=== PATIENT | female | born 2000 | race Caucasian/White ===

== ENCOUNTER 2019-03-20 20:26 | Inpatient (IN) | payer BC ==
[2019-03-20] MEDS ORDERED: Sodium Chloride 0.9% 10 ML Syringe FLUSH PRN (20:46)
[2019-03-20] MEDS ORDERED: Ampicillin 2 GM in Sodium Chloride 0.9% 100 ML IV ONE (20:46)
[2019-03-20] MEDS ORDERED: Nalbuphine 10 MG/1 ML Vial IVPUSH PRN (20:46)
[2019-03-20] MEDS ORDERED: Ondansetron 4 MG/2 ML SDV IVPUSH PRN (20:46)
[2019-03-20] MEDS ORDERED: Oxytocin/Lactated Ringers 10 UNIT/1,000 ML BAG IV SCH ×2 (21:00)
[2019-03-20] MEDS ORDERED: Lactated Ringers 1,000 ML IV SCH (21:00)
[2019-03-20] MEDS ORDERED: Ampicillin 2 GM AdvVial IV ONE (21:02)
[2019-03-20] MEDS ORDERED: Lactated Ringers 1,000 ML ONE (21:02)
--- NOTE | 2019-03-20 21:19 | PCM.LDHP ---
L&D History of Present Illness - General Date of Service: 03/20/19 Admit Problem/Dx: Patient Status Order with Admit Dx/Problem 03/20/19 20:33 Patient Status [ADT] Routine 03/20/19 20:46 Patient Status [ADT] Routine Admission Diagnosis/Problem Admission Diagnosis/Problem 03/20/19 21:10 Erin is a 18-year-old 1 para 0 white female who is at 40-3/7 weeks gestational age with an TERESA of 03/09/2019 who is admitted to labor and delivery in active labor with spontaneous rupture membranes with resultant clear amniotic fluid. Source of Information: Patient History Limitations: Reports: No Limitations - History of Present Illness Introduction:: Erin is a 18-year-old 1 para 0 white female who is at 40-3/7 weeks gestational age with an TERESA of 03/09/2019 who is admitted to labor and delivery in active labor with spontaneous rupture membranes with resultant clear amniotic fluid.Patient seen earlier in clinic today on the a.m. of 03/20/2019 at which time she was noted to be dariela. She is evaluated with a reactive nonstress test. Cervix changed somewhat to 2+ centimeters. She now is dariela every 3 minutes. She is somewhat uncomfortable with contractions mild to moderate in intensity. Nursing evaluation of cervix shows 3 cm dilation , 90% effacement, vertex presentation. heart tones are reassuring. NEUROLOGY TECHNOLOGIST history: Patient is 1 para 0. TERESA is 03/17/2019 as based upon a certain last menstrual start 06/10/2018 and supported by 4 ultrasounds done during the course of her . Patient had menarche at age 12. Cycles every 28-30 days. Monthly cycles are noted. Patient is not using any control time conception. Her last menstrual period was definite. course: Patient was first seen for this on 09/02/2018 at 12 weeks gestational age. Patient had regular visits. She had a weight gain from 124.2 pounds up to 153.6 pounds for a 29.4 pound weight increase. Fundal height growth was appropriate. Vital signs were stable throughout the course. Patient is group B strep positive. She had an induction scheduled for 2018. She did have bacterial vaginosis during the course of Prevacid which was treated with antibiotics. She declined flu shot. She declined genetic testing. She declined Tdap. Her [place] depression screening score 10/31/2018 was 01 scale 30. She had a normal one-hour GTT. She is planning on breast- feeding. She hasn't a velamentous insertion of the umbilical cord. Laboratory testing in shows blood to be HIV-positive. Antibody screen is negative. First trimester hemoglobin was 14.3 g/dL. Platelets were 267,000. She is rubella immune. RPR is nonreactive. Urine cultures negative. Hepatitis B surface antigen and HIV assays were both negative.. GC and Chlamydia were also both negative. Her second trimester labs showed a hemoglobin 12.4 g/dL. Platelets were 285,000. One-hour GTT was normal at 63. Group B strep screen was positive on 02/20/2019 and her RPR second trimester was nonreactive. Numeric Allergies: none Medications: vitamins daily Past medical history: Unremarkable. Past surgical history: Unremarkable. Family history:. Mother had 2 miscarriages. She is however alive and well. Father is alive and well. Patient has 2 brothers 1 of whom has 2 moles in his heart. Had surgery for this. Both brothers are alive and well. Patient has 5 sisters who are alive and well. Internal grandmother is alive and well as is her maternal grandfather. Paternal grandmother is alive but has type 2 diabetes. Paternal grandfather is alive and well. There is no known family history of cancer, bleeding disorders, blood clotting disorders, anesthesia problems or related problems. Social history: Patient is is Jo[employer] F. She is not employed at the present time. She has some college education. She speaks German. She lives in [place] with her . She does not use any significant loss of alcohol, drugs or tobacco. Review of systems: In general patient has no complaints. She is however ruptured with clear amniotic fluid resulting. She is dariela. But these are mild at the present time. Skin: Negative Lungs: No infectious symptoms or shortness of breath Cardiovascular: No chest pain or exercise intolerance Breasts: Changes associated with . Patient plans to breast-feed GI: Negative : Changes associated with . Musculoskeletal: Negative Neurological: Negative In general the patient is well-developed, well-nourished, pleasant female of stated age in no acute distress. Skin is warm dry without lesions. HEENT, neck and back within normal limits. Lungs are clear with good breath sounds in all lung brown. Cardiovascular exam shows regular and rhythm without murmurs. Breasts exam deferred at this time. It was done at first visit promptly normal. Abdomen is gravid with last fundal height of 38 cm earlier on the day of admission. She. Genital exam per digital evaluation shows cervix to be 3 cm, S1 station, anterior, soft, 90% effaced by nursing evaluation. Extremities and neurological exam are grossly within normal limits. - Related Data Allergies/Adverse Reactions: Allergies Allergy/AdvReac Type Severity Reaction Status Date / Time No Known Allergies Allergy Verified 03/20/19 20:33 H&P Review of Systems - Review of Systems: Review Of Systems: See Below L&D Exam - Exam Exam: See Below - Vital Signs Weight: 70.307 kg Problem List Initiated/Reviewed/Updated: Yes Orders Last 24hrs: Active Orders 24 hr Category Date Time Status Patient Status [ADT] Routine ADT 03/20/19 20:46 Active Activity as Tolerated [RC] PFP Care 03/20/19 20:46 Active Communication Order [RC] ASDIRECTED Care 03/20/19 20:46 Active Heart Tones [RC] ASDIRECTED Care 03/20/19 20:46 Active Non Stress Test [RC] PER UNIT ROUTINE Care 03/20/19 20:33 Active Notify Provider [RC] PFP Care 03/20/19 20:46 Active Notify Provider [RC] PRN Care 03/20/19 20:46 Active Peripheral IV Care [RC] . DIRECTED Care 03/20/19 20:46 Active Pump Management, Intrathecal [RC] ASDIRECTED Care 03/20/19 20:55 Active Vital Signs [RC] PER UNIT ROUTINE Care 03/20/19 20:33 Active Vital Signs [RC] PER UNIT ROUTINE Care 03/20/19 20:46 Active BLOOD BANK HOLD SPECIMEN [BBK] Stat Lab 03/20/19 20:46 Ordered CBC WITH AUTO DIFF [HEME] Stat Lab 03/20/19 20:46 Ordered RAPID PLASMA REAGIN,RPR [CHEM] Routine Lab 03/20/19 20:46 Ordered Ampicillin 1 gm Med 03/20/19 21:00 Pending Sodium Chloride 0.9% [Normal Saline] 100 ml IV Q4H Ampicillin 2 gm Med 03/20/19 20:46 Active Sodium Chloride 0.9% [Normal Saline] 100 ml IV ONETIME Lactated Ringers [Ringers, Lactated] 1,000 ml Med 03/20/19 21:00 Active IV ASDIRECTED Nalbuphine [Nubain] Med 03/20/19 20:46 Active 10 mg IVPUSH Q2H PRN Ondansetron [Zofran] Med 03/20/19 20:46 Active 4 mg IVPUSH Q4H PRN Oxytocin/Lactated Ringers [Pitocin in LR 10 Units/1,000 Med 03/20/19 21:00 Active ML] 10 unit in 1,000 ml IV .CONTINUOUS Oxytocin/Lactated Ringers [Pitocin in LR 10 Units/1,000 Med 03/20/19 21:00 Active ML] 10 unit in 1,000 ml IV TITRATE Sodium Chloride 0.9% [Saline Flush] Med 03/20/19 20:46 Active 10 ml FLUSH ASDIRECTED PRN Electronic Heart Tones Ext w TOCO [WOMSER] Oth 03/20/19 20:46 Ordered Routine Electronic Heart Tones Internal [WOMSER] Per Unit Ot 03/20/19 20:46 Ordered Routine Peripheral IV Insertion Adult [OM.PC] Routine Oth 03/20/19 20:46 Ordered Resuscitation Status Routine Resus Stat 03/20/19 20:33 Ordered Medication Orders Ampicillin Sodium 2 gm/ Sodium (Chloride) 100 mls @ 200 mls/hr IV ONETIME ONE Stop: 03/20/19 21:15 Lactated Ringer's (Ringers, Lactated) 1,000 mls @ 100 mls/hr IV ASDIRECTED MARYANA Ampicillin Sodium 1 gm/ Sodium (Chloride) 100 mls @ 200 mls/hr IV Q4H MARYANA Oxytocin/Lactated Ringer's (Pitocin In Lr 10 Units/1,000 Ml) 10 unit in 1,000 mls @ 12 mls/hr IV TITRATE MARYANA; Protocol Oxytocin/Lactated Ringer's (Pitocin In Lr 10 Units/1,000 Ml) 10 unit in 1,000 mls @ 500 mls/hr IV .CONTINUOUS MARYANA Nalbuphine HCl (Nubain) 10 mg IVPUSH Q2H PRN PRN Reason: Pain Ondansetron HCl (Zofran) 4 mg IVPUSH Q4H PRN PRN Reason: Nausea/Vomiting Sodium Chloride (Saline Flush) 10 ml FLUSH ASDIRECTED PRN PRN Reason: Keep Vein Open Assessment/Plan Comment:: 1. 40-3/7 week intrauterine , early active labor, spontaneous rupture membranes with resultant clear amniotic fluid. 2. Group B strep positive statuscandidate for antibiotics per protocol in labor and delivery 3. Patient plans to breast-feed. 4. Patient desires natural labor. She possibly would be except of epidural if necessary. 5. Patient has declined her T dap, genetic testing, flu shot. 6. Velamentous insertion of umbilical cordplacenta is fundal in location. 7. Normal 1 hour gtt. Plan: 1. Anticipate normal spontaneous vaginal delivery. Will watch closely for abnormal uterine bleeding. Watch closely to ensure complete delivery of placenta. 2. Group B strep prophylaxis with ampicillin 2 g IV now and then 1 g IV every 4 hours until delivery 3. Epidural is offered to the patient. At this time desires natural labor. 4. Support breast-feeding decision 5. CBC and RPR upon admission per protocol
[2019-03-21] MEDS: Ampicillin 1 GM in Sodium Chloride 0.9% 100 ML IV SCH ×3 (01:00→08:34)
[2019-03-21] MEDS ORDERED: fentaNYL 100 MCG/2 ML SDV EPIDUR PRN (07:57)
[2019-03-21] MEDS ORDERED: fentaNYL/Bupivacaine/NS 2 MCG-0.125% 250 ML EPIDUR PRN (07:57)
[2019-03-21] MEDS ORDERED: Ondansetron 4 MG/2 ML SDV IVPUSH PRN (07:57)
[2019-03-21] MEDS ORDERED: ePHEDrine 50 MG/ML SDV IVPUSH PRN (07:57)
--- NOTE | 2019-03-21 07:59 | PCM.PREANE ---
Preanesthetic Assessment - Anesthesia/Transfusion/Family Hx Anesthesia History: No Prior Anesthesia Family History of Anesthesia Reaction: No Transfusion History: No Prior Transfusion(s) Intubation History: Unknown - Physical Assessment NPO Status Date: 03/21/19 Vital Signs: Last Vital Signs Temp 36.8 C 03/20/19 20:33 Pulse 76 03/20/19 20:33 Resp 14 03/20/19 20:33 BP 144/88 H 03/20/19 20:33 Pulse Ox 100 03/20/19 20:33 Height: 1.73 m Weight: 70.307 kg ASA Class: 2 Mental Status: Alert & Oriented x3 - Lab Values: Laboratory Last Values WBC 10.83 K/mm3 (3.98-10.04) H 03/20/19 21:14 RBC 3.86 M/mm3 (3.98-5.22) L 03/20/19 21:14 Hgb 11.3 gm/dl (11.2-15.7) 03/20/19 21:14 Hct 34.1 % (34.1-44.9) 03/20/19 21:14 MCV 88.3 fl (79.4-94.8) D 03/20/19 21:14 MCH 29.3 pg (25.6-32.2) 03/20/19 21:14 MCHC 33.1 g/dl (32.2-35.5) 03/20/19 21:14 RDW Std Deviation 39.9 fL (36.4-46.3) 03/20/19 21:14 Plt Count 189 K/mm3 (182-369) D 03/20/19 21:14 MPV 12.2 fl (9.4-12.3) 03/20/19 21:14 Neut % (Auto) 72.5 % (34.0-71.1) H 03/20/19 21:14 Lymph % (Auto) 17.3 % (19.3-51.7) L 03/20/19 21:14 [place] % (Auto) 9.6 % (4.7-12.5) 03/20/19 21:14 Eos % (Auto) 0.1 (0.7-5.8) L 03/20/19 21:14 Baso % (Auto) 0.1 % (0.1-1.2) 03/20/19 21:14 Neut # (Auto) 7.86 K/mm3 (1.56-6.13) H 03/20/19 21:14 Lymph # (Auto) 1.87 K/mm3 (1.18-3.74) 03/20/19 21:14 [place] # (Auto) 1.04 K/mm3 (0.24-0.36) H 03/20/19 21:14 Eos # (Auto) 0.01 K/mm3 (0.04-0.36) L 03/20/19 21:14 Baso # (Auto) 0.01 K/mm3 (0.01-0.08) 03/20/19 21:14 Above labs reviewed and noted and within acceptable ranges to proceed with epidural if desired. 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 USE Smoking Status *Q: Never Smoker Second Hand Smoke Exposure: No Recreational Drug Use History: No - HOME MEDS Home Medications: Home Meds PNV95/Ferrous Fumarate/FA [ Tablet] 1 tab PO DAILY 03/20/19 [History] - CURRENT (IN HOUSE) MEDS Current Meds: Current Medications Ephedrine Sulfate (Ephedrine Sulfate) 5 mg IVPUSH ASDIRECTED PRN PRN Reason: Hypotension Fentanyl (Sublimaze) 100 mcg EPIDUR Q3H PRN PRN Reason: Pain Fentanyl/Bupivacaine HCl (Fentanyl/Bupivacaine/Ns 2 Mcg-0.125% 250 Ml) ml EPIDUR CONTINUOUS PRN PRN Reason: Pain Lactated Ringer's (Ringers, Lactated) 1,000 mls @ 100 mls/hr IV ASDIRECTED MARYANA Last Admin: 03/20/19 21:15 Dose: 100 mls/hr Ampicillin Sodium 1 gm/ Sodium (Chloride) 100 mls @ 200 mls/hr IV Q4H [facility] Last Admin: 03/21/19 05:15 Dose: 200 mls/hr Oxytocin/Lactated Ringer's (Pitocin In Lr 10 Units/1,000 Ml) 10 unit in 1,000 mls @ 12 mls/hr IV TITRATE MARYANA; Protocol Oxytocin/Lactated Ringer's (Pitocin In Lr 10 Units/1,000 Ml) 10 unit in 1,000 mls @ 500 mls/hr IV .CONTINUOUS MARYANA Nalbuphine HCl (Nubain) 10 mg IVPUSH Q2H PRN PRN Reason: Pain Ondansetron HCl (Zofran) 4 mg IVPUSH Q4H PRN PRN Reason: Nausea/Vomiting Ondansetron HCl (Zofran) 4 mg IVPUSH ONETIME PRN PRN Reason: Nausea/Vomiting Sodium Chloride (Saline Flush) 10 ml FLUSH ASDIRECTED PRN PRN Reason: Keep Vein Open Discontinued Medications Ampicillin Sodium (Ampicillin) Confirm Administered Dose 2 gm IV .[employer]-Vputi ONE Stop: 03/20/19 21:03 Last Admin: 03/20/19 21:24 Dose: Not Given Ampicillin Sodium 2 gm/ Sodium (Chloride) 100 mls @ 200 mls/hr IV ONETIME ONE Stop: 03/20/19 21:15 Last Admin: 03/20/19 21:15 Dose: 200 mls/hr Lactated Ringer's (Ringers, Lactated) Confirm Administered Dose 1,000 mls @ as directed .ROUTE .[email or web address] ONE Stop: 03/20/19 21:03 Last Admin: 03/20/19 21:24 Dose: Not Given
[2019-03-21] MEDS ORDERED: Lidocaine 1% 50 ML MDV ONE (09:07)
--- NOTE | 2019-03-21 12:10 | PCM.SN ---
- Free Text/Narrative Note: Delivery note: Erin is a 18-year-old 1 para now 1001 white female admitted last evening with spontaneous rupture membranes at 40-3/7 weeks gestational age. She progressed to complete cervical dilation. At 0954 hrs. on 03/21/2019 patient delivered a viable, gillette, female named Mitzi and had Apgars of 9 and 9. Weight of 3210 g (7 lbs. 1 oz.) The baby was placed on mom's abdomen. Nose and mouth were bulb suctioned. Pitocin was started at 500 mL now her to facilitate increase uterine tone and decreased likelihood of bleeding. The umbilical cord was locked pulsate 1 minute and then was clamped 2 and cut by the baby's father air. Cord was obtained. The umbilical cord had 3 vessels. The patient had a small first-degree laceration was repaired with 3-0 Monocryl using no anesthetic. The placenta delivered in a [place] presentation, appeared intact and complete and, as previously diagnosed by ultrasounds, was present a velamentous insertion of the cord. Estimated blood loss 100 mL. Condition: Good Patient plans to breast-feed.
[2019-03-21] MEDS ORDERED: Acetaminophen 325 MG Tab PO PRN (12:57)
[2019-03-21] MEDS ORDERED: Ibuprofen 600 MG Tab PO PRN (12:57)
[2019-03-21] MEDS ORDERED: Benzocaine/Menthol 20%-0.5% Spray 56 GM Canister TOP PRN (12:57)
[2019-03-21] MEDS ORDERED: Docusate Sodium 100 MG Cap PO PRN (12:57)
[2019-03-21] MEDS ORDERED: Witch Hazel Medicated Pads 40/Jar TOP PRN (12:57)
--- NOTE | 2019-03-22 09:00 | PCM.SN ---
- Free Text/Narrative Note: Post Progress Note PPD # 1 Subjective: Doing well overall. Ambulating without difficulty. Lochia minimal. Voiding without difficulty. Tolerating regular diet without nausea or vomiting. Pain minimal and able to be controlled with oral medications. Breast-feeding with minimal difficulty. Objective: Vitals: Vital Signs - 24 hr 03/21/19 03/21/19 03/21/19 12:06 15:50 21:05 Temperature 36.6 C 36.2 C Pulse, 84 77 Peripheral Respiratory 12 12 16 Rate Blood Pressure 123/80 126/81 117/75 O2 Sat by Pulse 99 100 Oximetry 03/22/19 05:06 Temperature 36.4 C Pulse, 73 Peripheral Respiratory 18 Rate Blood Pressure 116/75 O2 Sat by Pulse 98 Oximetry Physical Exam General: Alert and oriented, no acute distress Lungs: Clear to auscultation bilaterally Heart: Regular rate and rhythm Abdomen: Soft, minimal appropriate tenderness, non-distended, fundus midline, nontender, and 2 finger breadths below the umbilicus Extremities: No edema Laboratory Tests 03/20/19 03/20/19 Range/Units 21:14 21:14 WBC 10.83 H (3.98-10.04) K/mm3 RBC 3.86 L (3.98-5.22) M/mm3 Hgb 11.3 (11.2-15.7) gm/dl Hct 34.1 (34.1-44.9) % MCV 88.3 D (79.4-94.8) fl MCH 29.3 (25.6-32.2) pg MCHC 33.1 (32.2-35.5) g/dl RDW Std Deviation 39.9 (36.4-46.3) fL Plt Count 189 D (182-369) K/mm3 MPV 12.2 (9.4-12.3) fl Neut % (Auto) 72.5 H (34.0-71.1) % Lymph % (Auto) 17.3 L (19.3-51.7) % [place] % (Auto) 9.6 (4.7-12.5) % Eos % (Auto) 0.1 L (0.7-5.8) Baso % (Auto) 0.1 (0.1-1.2) % Neut # (Auto) 7.86 H (1.56-6.13) K/mm3 Lymph # (Auto) 1.87 (1.18-3.74) K/mm3 [place] # (Auto) 1.04 H (0.24-0.36) K/mm3 Eos # (Auto) 0.01 L (0.04-0.36) K/mm3 Baso # (Auto) 0.01 (0.01-0.08) K/mm3 RPR Non-reactive (NONREACTIVE) ASSESSMENT: 18-year-old female s/p normal vaginal delivery PPD #1, complicated by GBS positive and received 4 doses of antibiotics prior to delivery PLAN: Doing well Breast-feeding with minimal difficulty. Assist as needed Lochia minimal. Continue to monitor for appropriate lochia. Continue routine care Anticipate discharge home tomorrow Edilson Bobo MD 8:59 AM 03/22/2019
--- NOTE | 2019-03-22 13:33 | PCM.DCSUM1 ---
Discharge Summary - Hospital Course Free Text/Narrative:: Delivery note: Erin is a 18-year-old 1 para now 1001 white female admitted last evening with spontaneous rupture membranes at 40-3/7 weeks gestational age. She progressed to complete cervical dilation. At 0954 hrs. on 03/21/2019 patient delivered a viable, gillette, female named Mitzi and had Apgars of 9 and 9. Weight of 3210 g (7 lbs. 1 oz.) The baby was placed on mom's abdomen. Nose and mouth were bulb suctioned. Pitocin was started at 500 mL now her to facilitate increase uterine tone and decreased likelihood of bleeding. The umbilical cord was locked pulsate 1 minute and then was clamped 2 and cut by the baby's father air. Cord was obtained. The umbilical cord had 3 vessels. The patient had a small first-degree laceration was repaired with 3-0 Monocryl using no anesthetic. The placenta delivered in a Fajardo presentation, appeared intact and complete and, as previously diagnosed by ultrasounds, was present a velamentous insertion of the cord. Estimated blood loss 100 mL. Condition: Good Patient plans to breast-feed. HPI Initial Comments: Delivery note: Erin is a 18-year-old 1 para now 1001 white female admitted last evening with spontaneous rupture membranes at 40-3/7 weeks gestational age. She progressed to complete cervical dilation. At 0954 hrs. on 03/21/2019 patient delivered a viable, gillette, female named Mitzi and had Apgars of 9 and 9. Weight of 3210 g (7 lbs. 1 oz.) The baby was placed on mom's abdomen. Nose and mouth were bulb suctioned. Pitocin was started at 500 mL now her to facilitate increase uterine tone and decreased likelihood of bleeding. The umbilical cord was locked pulsate 1 minute and then was clamped 2 and cut by the baby's father air. Cord was obtained. The umbilical cord had 3 vessels. The patient had a small first-degree laceration was repaired with 3-0 Monocryl using no anesthetic. The placenta delivered in a Fajardo presentation, appeared intact and complete and, as previously diagnosed by ultrasounds, was present a velamentous insertion of the cord. Estimated blood loss 100 mL. Condition: Good Patient plans to breast-feed. Brief History: Delivery note: Erin is a 18-year-old 1 para now 1001 white female admitted last evening with spontaneous rupture membranes at 40-3/7 weeks gestational age. She progressed to complete cervical dilation. At 0954 hrs. on 03/21/2019 patient delivered a viable, gillette, female infant named Mitzi and had Apgars of 9 and 9. Weight of 3210 g (7 lbs. 1 oz.) The baby was placed on mom's abdomen. Nose and mouth were bulb suctioned. Pitocin was started at 500 mL now her to facilitate increase uterine tone and decreased likelihood of bleeding. The umbilical cord was locked pulsate 1 minute and then was clamped 2 and cut by the baby's father air. Cord was obtained. The umbilical cord had 3 vessels. The patient had a small first-degree laceration was repaired with 3-0 Monocryl using no anesthetic. The placenta delivered in a Fajardo presentation, appeared intact and complete and, as previously diagnosed by ultrasounds, was present a velamentous insertion of the cord. Estimated blood loss 100 mL. Condition: Good. Patient plans to breast-feed. Diagnosis: Stroke: No - Discharge Data Discharge Date: 03/22/19 Discharge Disposition: Home, Self-Care 01 Condition: Good - Referral to Home Health Primary Care Physician: Michael Saenz MD - Discharge Diagnosis/Problem(s) (1) 40 weeks gestation of SNOMED Code(s): 86536051 ICD Code: Z3A.40 - 40 WEEKS GESTATION OF Status: Acute Current Visit: Yes (2) GBS (group B Streptococcus carrier), +RV culture, currently SNOMED Code(s): 5644504198487, 953579486, 5618827808365 ICD Code: O99.820 - STREPTOCOCCUS B CARRIER STATE COMPLICATING Status: Acute Current Visit: Yes (3) Vaginal delivery SNOMED Code(s): 683928348 ICD Code: O80 - ENCOUNTER FOR FULL-TERM UNCOMPLICATED DELIVERY Status: Acute Current Visit: Yes (4) First degree perineal laceration during delivery SNOMED Code(s): 222483524 ICD Code: O70.0 - FIRST DEGREE PERINEAL LACERATION DURING DELIVERY Status: Acute Current Visit: Yes (5) Velamentous insertion of umbilical cord SNOMED Code(s): 94870541 ICD Code: O43.129 - VELAMENTOUS INSERTION OF UMBILICAL CORD, UNSP TRIMESTER Status: Acute Current Visit: Yes - Patient Summary/Data Complications: None Consults: None Hospital Course: Erin Dueñas was admitted for spontaneous labor with spontaneous rupture membranes. On admission her cervix was dilated to 3 cm. She was GBS positive and was started on ampicillin for GBS prophylaxis. She received a total of 4 doses prior to delivery. She had spontaneous rupture of membranes with clear fluid. She progressed to complete and began pushing. On 03/21/2019 she had a normal vaginal delivery of a live female infant at 09:54. Apgars of 9 and 9. Weight of 3210 g (7 pounds 1.2 ounces). Her course was uneventful. Her pain was well controlled and she had minimal lochia. She was ambulating, tolerating a regular diet and voiding normally. She was breast-feeding with minimal difficulty. She was afebrile and her hematocrit was 34.1 on admission. She desired to be discharged home on the afternoon of PPD #1. Her blood type is AB+. - Patient Instructions Diet: Regular Diet as Tolerated Activity: Apply Ice, As Tolerated Activity, Other: Nothing in the vagina for 6 weeks Driving: May Drive Today Showering/Bathing: May Shower Notify Provider of: Fever, Increased Pain, Swelling and Redness, Drainage, Nausea and/or Vomiting Other/Special Instructions: Please contact your physician's office if you have heavy vaginal bleeding enough to soak a pad in less than an hour for several hours. Monitor for any signs of an infection in the breasts with severe pain or redness of the breast. - Discharge Plan *PRESCRIPTION DRUG MONITORING PROGRAM REVIEWED*: Not Applicable *COPY OF PRESCRIPTION DRUG MONITORING REPORT IN PATIENT EMILIE: Not Applicable Home Medications: Home Meds PNV95/Ferrous Fumarate/FA [ Tablet] 1 tab PO DAILY 03/20/19 [History] Acetaminophen [Tylenol] 650 mg PO Q6H PRN tablet 03/22/19 [Rx] Benzocaine/Menthol [Dermoplast Pain Relief Moore] 1 spray TOP ASDIRECTED PRN canister 03/22/19 [Rx] Docusate Sodium [Colace] 100 mg PO BID PRN cap 03/22/19 [Rx] Ibuprofen [Motrin] 600 mg PO Q6H PRN tablet 03/22/19 [Rx] Deric Fernandez [Tucks] 1 pad TOP ASDIRECTED PRN pad 03/22/19 [Rx] Patient Handouts: Vaginal Delivery, Care After, Care of a Perineal Tear Referrals: Michael Saenz MD [Primary Care Provider] - (Follow-up in 2-3 weeks for routine visit or earlier as needed.) - Discharge Summary/Plan Comment DC Time >30 min.: No - Patient Data Vitals - Most Recent: Last Vital Signs Temp 36.4 C 03/22/19 05:06 Pulse 73 03/22/19 05:06 Resp 18 03/22/19 05:06 BP 116/75 03/22/19 05:06 Pulse Ox 98 03/22/19 05:06 Weight - Most Recent: 70.307 kg I&O - Last 24 hours: Intake & Output 03/21/19 03/22/19 03/22/19 22:59 06:59 14:59 Intake Total 120 Balance 120 Lab Results - Last 24 hrs: Laboratory Results - last 24 hr 03/20/19 Range/Units 21:14 RPR Non-reactive (NONREACTIVE) Med Orders - Current: Current Medications Acetaminophen (Tylenol) 650 mg PO Q4H PRN PRN Reason: mild pain or fever Benzocaine/Menthol (Dermoplast Pain Relief Moore) 0 gm TOP ASDIRECTED PRN PRN Reason: Perineal Comfort Measure Docusate Sodium (Colace) 100 mg PO BID PRN PRN Reason: Constipation Ibuprofen (Motrin) 600 mg PO Q4H PRN PRN Reason: Mild pain or fever Last Admin: 03/21/19 23:38 Dose: 600 mg Witch Rebecca (Tucks) 1 pad TOP ASDIRECTED PRN PRN Reason: Pain Discontinued Medications Ampicillin Sodium (Ampicillin) Confirm Administered Dose 2 gm IV .STK-MED ONE Stop: 03/20/19 21:03 Last Admin: 03/20/19 21:24 Dose: Not Given Ephedrine Sulfate (Ephedrine Sulfate) 5 mg IVPUSH ASDIRECTED PRN PRN Reason: Hypotension Fentanyl (Sublimaze) 100 mcg EPIDUR Q3H PRN PRN Reason: Pain Fentanyl/Bupivacaine HCl (Fentanyl/Bupivacaine/Ns 2 Mcg-0.125% 250 Ml) 250 ml EPIDUR CONTINUOUS PRN PRN Reason: Pain Ampicillin Sodium 2 gm/ Sodium (Chloride) 100 mls @ 200 mls/hr IV ONETIME ONE Stop: 10/31/19 21:15 Last Admin: 03/20/19 21:15 Dose: 200 mls/hr Lactated Ringer's (Ringers, Lactated) 1,000 mls @ 100 mls/hr IV ASDIRECTED MARYANA Last Admin: 03/20/19 21:15 Dose: 100 mls/hr Ampicillin Sodium 1 gm/ Sodium (Chloride) 100 mls @ 200 mls/hr IV Q4H MARYANA Last Admin: 03/21/19 08:34 Dose: 200 mls/hr Oxytocin/Lactated Ringer's (Pitocin In Lr 10 Units/1,000 Ml) 10 unit in 1,000 mls @ 12 mls/hr IV TITRATE MARYANA; Protocol Oxytocin/Lactated Ringer's (Pitocin In Lr 10 Units/1,000 Ml) 10 unit in 1,000 mls @ 500 mls/hr IV .CONTINUOUS MARYANA Last Admin: 03/21/19 11:51 Dose: 500 mls/hr Lactated Ringer's (Ringers, Lactated) Confirm Administered Dose 1,000 mls @ as directed .ROUTE .STK-MED ONE Stop: 03/20/19 21:03 Last Admin: 03/20/19 21:24 Dose: Not Given Lidocaine HCl (Xylocaine 1%) Confirm Administered Dose 50 ml .ROUTE .STK-MED ONE Stop: 03/21/19 09:08 Last Admin: 03/22/19 01:36 Dose: Not Given Nalbuphine HCl (Nubain) 10 mg IVPUSH Q2H PRN PRN Reason: Pain Ondansetron HCl (Zofran) 4 mg IVPUSH Q4H PRN PRN Reason: Nausea/Vomiting Ondansetron HCl (Zofran) 4 mg IVPUSH ONETIME PRN PRN Reason: Nausea/Vomiting Sodium Chloride (Saline Flush) 10 ml FLUSH ASDIRECTED PRN PRN Reason: Keep Vein Open
== END 2019-03-22 17:00 | disposition home or self-care (01) | DRG 560 ==
LOC: JD.OB 20:26 → JD.OBCHECK 20:26 → JD.OB 20:46 → OBSVTOIN 03-21 09:54 → JD.OB 03-21 09:55
PROVIDERS: ADMIT Obstetrics & Gynecology; ATTEND Obstetrics & Gynecology
PROC: 10E0XZZ Delivery of Products of Conception, External Approach (ICD-10-PCS; principal; 2019-03-21)
PROC: 0HQ9XZZ Repair Perineum Skin, External Approach (ICD-10-PCS; 2019-03-21)
DX: O48.0 Post-term pregnancy (principal); O70.0 First degree perineal laceration during delivery; O99.824 Streptococcus B carrier state complicating childbirth; O43.123 Velamentous insertion of umbilical cord, third trimester; Z3A.40 40 weeks gestation of pregnancy; Z37.0 Single live birth; O69.81X0 Labor and delivery complicated by cord around neck, without compression, not applicable or unspecified
CPT/HCPCS: 36415; 59025; 59409; 85025; 86592; A9270-GY; J0290; J2590; J7030; J7120

== ENCOUNTER 2020-10-31 07:20 | Inpatient (IN) | payer BC ==
[2020-10-31] MEDS ORDERED: Ondansetron 4 MG/2 ML SDV IVPUSH PRN (07:41)
[2020-10-31] MEDS ORDERED: Nalbuphine 10 MG/1 ML Vial IVPUSH PRN (07:41)
[2020-10-31] MEDS ORDERED: Ampicillin 2 GM in Sodium Chloride 0.9% 100 ML IV ONE (07:41)
[2020-10-31] MEDS ORDERED: Sodium Chloride 0.9% 10 ML Syringe FLUSH PRN (07:41)
[2020-10-31] MEDS ORDERED: Lactated Ringers 1,000 ML IV SCH (07:45)
[2020-10-31] MEDS ORDERED: Oxytocin/Lactated Ringers 10 UNIT/1,000 ML BAG IV SCH (07:45)
--- NOTE | 2020-10-31 08:15 | PCM.LDHP ---
L&D History of Present Illness - General Date of Service: 10/31/20 Admit Problem/Dx: Patient Status Order with Admit Dx/Problem 10/31/20 07:41 Patient Status [ADT] Routine Admission Diagnosis/Problem Admission Diagnosis/Problem 10/31/20 08:02 Erin is a 20-year-old 2 para 1-0-0-1 female admitted on the a.m. of 10/31/2020 at 41-3/7 weeks gestational age with an TERESA of 10/21/2020 in active lab or with advanced cervical dilation of 8 cm. Source of Information: Patient History Limitations: Reports: No Limitations - History of Present Illness Introduction:: Erin is a 20-year-old 2 para 1-0-0-1 female admitted on the a.m. of 10/31/2020 at 41-3/7 weeks gestational age with an TERESA of 10/21/2020 in active labor with advanced cervical dilation of 8 cm. Chidi throughout the night. On last evaluation clinic her cervix was 1 cm, 50% effaced, soft, posterior, -3. She denies any leakage of fluid or vaginal bleeding. Baby has been active. ACCESS LEAD history: 2 para 1-0-0-1. Patient had menarche at at approximately age 10. Cycles on a regular monthly basis. Using no control at the time of conception. LMP somewhat unknown. TERESA of 10/21/2020 was set by an ultrasound done at 12-0/7 weeks on 04/08/2020 and supported by a second ultrasound done on 06/07/2020 at 20-2/7 weeks. Patient's past obstetric history includes the followin. Female born 03/21/2021 at 40-4/7 weeks gestational age after 14 hours of labor7 pounds 1 ounceNSVDno anesthesiae [facility]inson[facility] lac[facility] with repair. Baby's name is Mitzi Nair. Patient denies any abnormal Pap smears or STIs. course: Patient was initially seen at 12 weeks gestation. She was seen on a regular basis throughout the . Her weight gain was from a pregravid weight of 124.2 pounds up to 156.2 pounds for 32 pound increase. Her vital signs are stable throughout the course. On last evaluation in clinic her cervix was 3 cm dilated, 80% effaced, posterior, soft, -3 station. Patient declined induction, desires natural childbirth. She had positive group B strep in her urine at the initial visit. She declined genetic testing. She declined the Tdap shot. She does not get flu vaccination. Her [place] depression screen score on 06/09/2020 was 0/30. She plans to breast-feed. Laboratory testing in shows blood to be a be positive with a negative antibody screen. First hemoglobin was 12.4 g/dL with platelets at 258,000. She is rubella immune. RPR is nonreactive. Urine culture showed group B strep. Hepatitis B surface antigen and HIV assays were negative as were the chlamydia and gonorrhea tests. Second trimester labs showed a hemoglobin of 10.9 g/dL and platelets at 257,000. 1 hour glucose was normal at 85. Group B strep was not performed at the end of the as it was positive in urine culture at the beginning. RPR on 07/26/2020 was nonreactive. Allergies: None Medications: 1. Ferrous sulfate 3 and 25 mg p.o. twice daily 2. Calcium 600 mg daily 3. vitamins daily Past medical history: 1. 03/21/2019 Past surgical history: Unremarkable Family history: Mother is alive and well. She has had 2 miscarriages. Father is alive and well. 2 brothers1 brother with 2 holes in his heart had surgery. Both are alive and well at this time. 5 sisters alive and well. Maternal grandmother and maternal grandfather both alive and well. Paternal grandmother is alive with type 2 diabetes paternal grandfather is alive and well. No known family history of cancer, bleeding or clotting disorders, anesthesia related problems or other concerns. Review of systems: In general patient is having significant, painful contractions. She is reporting good activity. Skin: Negative Lungs: No infectious symptoms or shortness of breath Cardiovascular: No chest pain or exercise intolerance Breasts: No lumps, changes in size, pain, dimpling, discharge or axillary or supraclavicular concerns. Breast changes consistent with . GI: Negative : Body habitus changes associated with . Musculoskeletal: Negative Neurological: Negative In general the patient is well-developed, well-nourished, pleasant female of stated age in no acute distress. On last evaluation clinic on 10/20/2020 her blood pressure was 100/70. Weight was 156 with a pregravid weight of 124 for a 32 pound increase. Her pregravid BMI was 18.4. Height is 5 feet 8 inches. Skin is warm dry without lesions. HEENT, neck and back within normal limits. Lungs are clear with good breath sounds in all lung brown. Cardiovascular exam shows regular and rhythm without murmurs. Breast exam was done at first ita visit and is not repeated at this time. Patient does plan to breast-feed. Abdomen is gravid with last fundal height in at 39.5 cm. Baby in vertex presentation. Genital per nursing evaluation upon admission into labor is 8 cm, cephalic presentation, bulging bag martinez with no evidence of SROM. Extremities and neurological exam are grossly within normal limits. - Related Data Allergies/Adverse Reactions: Allergies Allergy/AdvReac Type Severity Reaction Status Date / Time No Known Allergies Allergy Verified 10/31/20 07:57 Home Medications: Home Meds Pnv No.95/Ferrous Fum/Folic AC [ Tablet] 1 tab PO DAILY 03/20/19 [History] Calcium Carbonate [Calcium] 600 mg PO DAILY 10/31/20 [History] Ferrous Sulfate [Iron] 325 mg PO DAILY 10/31/20 [History] Past Medical History - Past Health History Medical/Surgical History: Denies Medical/Surgical History ACCESS LEAD History: Reports: Social & Family History - Family History Family Medical History: No Pertinent Family History - Caffeine Use Caffeine Use: Reports: None H&P Review of Systems - Review of Systems: Review Of Systems: See Below L&D Exam - Exam Exam: See Below - Vital Signs Vital Signs: Last Vital Signs Temp 36.6 C 10/31/20 07:54 Pulse 79 10/31/20 07:54 Resp 14 10/31/20 07:54 BP 135/85 10/31/20 07:54 Pulse Ox Weight: 70.67 kg - Problem List (1) 41 weeks gestation of SNOMED Code(s): 54802245 ICD Code: Z3A.41 - 41 WEEKS GESTATION OF Status: Acute Current Visit: Yes Problem List Initiated/Reviewed/Updated: Yes Orders Last 24hrs: Active Orders 24 hr Category Date Time Status Patient Status [ADT] Routine ADT 10/31/20 07:41 Active Activity as Tolerated [RC] PFP Care 10/31/20 07:41 Active Communication Order [RC] ASDIRECTED Care 10/31/20 07:41 Active Heart Tones [RC] ASDIRECTED Care 10/31/20 07:41 Active Non Stress Test [RC] PER UNIT ROUTINE Care 10/31/20 07:41 Active Notify Provider [RC] PFP Care 10/31/20 07:41 Active Notify Provider [RC] PRN Care 10/31/20 07:41 Active Peripheral IV Care [RC] . DIRECTED Care 10/31/20 07:41 Active Vital Signs [RC] PER UNIT ROUTINE Care 10/31/20 07:41 Active Regular Diet [DIET] Diet 10/31/20 Breakfast Active CBC WITH AUTO DIFF [HEME] Stat Lab 10/31/20 07:41 Ordered CORONAVIRUS COVID-19 JOSEPH [MOLEC] Stat Lab 10/31/20 07:43 Ordered RAPID PLASMA REAGIN,RPR [CHEM] Routine Lab 10/31/20 07:41 Ordered Ampicillin 1 gm Med 10/31/20 12:00 Active Sodium Chloride 0.9% [Normal Saline] 100 ml IV Q4H Ampicillin 2 gm Med 10/31/20 07:41 Active Sodium Chloride 0.9% [Normal Saline] 100 ml IV ONETIME Lactated Ringers [Ringers, Lactated] 1,000 ml Med 10/31/20 07:45 Active IV ASDIRECTED Nalbuphine [Nubain] Med 10/31/20 07:41 Active 10 mg IVPUSH Q2H PRN Ondansetron [Zofran] Med 10/31/20 07:41 Active 4 mg IVPUSH Q4H PRN Oxytocin/Lactated Ringers [Pitocin in LR 10 Units/1,000 Med 10/31/20 07:45 Active ML] 10 unit in 1,000 ml IV .CONTINUOUS Sodium Chloride 0.9% [Saline Flush] Med 10/31/20 07:41 Active 10 ml FLUSH ASDIRECTED PRN Electronic Heart Tones Ext w TOCO [WOMSER] Oth 10/31/20 07:41 Ordered Routine Electronic Heart Tones Internal [WOMSER] Per Unit Oth 10/31/20 07:41 Ordered Routine Peripheral IV Insertion Adult [OM.PC] Routine Oth 10/31/20 07:41 Ordered Resuscitation Status Routine Resus Stat 10/31/20 07:41 Ordered Medication Orders Ampicillin Sodium 2 gm/ Sodium (Chloride) 100 mls @ 200 mls/hr IV ONETIME ONE Stop: 10/31/20 08:10 Last Admin: 10/31/20 07:47 Dose: 200 mls/hr Documented by: [id number] Ampicillin Sodium 1 gm/ Sodium (Chloride) 100 mls @ 200 mls/hr IV Q4H MARYANA Oxytocin/Lactated Ringer's (Pitocin In Lr 10 Units/1,000 Ml) 10 unit in 1,000 mls @ 500 mls/hr IV .CONTINUOUS MARYANA Lactated Ringer's (Ringers, Lactated) 1,000 mls @ 100 mls/hr IV ASDIRECTED MARYANA Last Admin: 10/31/20 07:47 Dose: 100 mls/hr Documented by: [id number] Nalbuphine HCl (Nalbuphine 10 Mg/1 Ml Vial) 10 mg IVPUSH Q2H PRN PRN Reason: Pain Ondansetron HCl (Ondansetron 4 Mg/2 Ml Sdv) 4 mg IVPUSH Q4H PRN PRN Reason: Nausea/Vomiting Sodium Chloride (Sodium Chloride 0.9% 10 Ml Syringe) 10 ml FLUSH ASDIRECTED PRN PRN Reason: Keep Vein Open Assessment/Plan Comment:: 1Charli Khan is a 20-year-old 2 para 1-0-0-1 female admitted on the a.m. of 10/31/2020 at 41-3/7 weeks gestational age with an TERESA of 10/21/2020 in active labor with advanced cervical dilation of 8 cm. 2. Group B strep positive by urine culture at beginning of 3. Plans to have a natural labor 4. anticipated 5. Patient plans to breast-feed 6. Patient is rubella immune. 7. Patient declined genetic testing, Tdap, flu vaccination. Plan: 1. Anticipate 2. Support breast-feeding decision 3. Natural labor per patient desire 4. Antibiotics per protocol consist of ampicillin 2 g IV initially and 1 g every 4 hours thereafter till delivery 5. Admission labs consist of CBC, COVID-19 testing, RPR per protocol.
--- NOTE | 2020-10-31 10:12 | PCM.SN.2 ---
- Free Text/Narrative Note: Delivery note: Stage I: Erin is a 20-year-old 2 para 1-0-0-1 female admitted on the a.m. of 10/31/2020 at 41-3/7 weeks gestational age with an TERESA of 10/21/2020 in active labor with advanced cervical dilation of 8 cm. Upon admission she was started on IV antibiotics with ampicillin 2 g given IV per protocol. Delay was undertaken to allow for antibiotic prophylaxis. Patient did not receive any analgesia. She progressed fairly rapidly to complete cervical dilation by approximately 0930 hrs. Amniotic fluid was clear. heart tones reassuring. Contraction pattern was every 2 to 3 minutes. Stage II: Patient pushed for approximately 15 minutes and delivered a viable, gillette, male infant with Apgars of 8 and 9, a weight of 4360 g (9 pounds 9.8 ounces), length of 23 inches. Gentle downward retraction and upward traction were used to deliver the baby's shoulders. No dystocia or other delivery problems were noted. The baby delivered at 0946 hrs. on 10/31/2020 in a direct occiput anterior position. Patient had no perineal or vaginal lacerations. The baby was placed on mom's abdomen, dried with warm blanket and nose and mouth were bulb suction. Pitocin was increased to 500 cc an hour using routine 10 units/L of IV fluid solution. This to facilitate increase in uterine tone and decrease likelihood of bleeding. The umbilical cord was allowed to pulsate for 2 to 3 minutes, was then clamped x2 and cut by the baby's Father Jose F. The umbilical cord had 3 vessels. Stage III: The placenta delivered at 1 950 hours in a Harper presentation. It appeared intact and complete and was discarded per patient desire. Estimated blood loss was approximately 100 cc. Perineum was intact and no suturing was required. Patient plans to breast-feed. Condition: Good.
[2020-10-31] MEDS ORDERED: Ibuprofen 600 MG Tab PO PRN (10:25)
[2020-10-31] MEDS ORDERED: Acetaminophen 325 MG Tab PO PRN (10:25)
[2020-10-31] MEDS ORDERED: Docusate Sodium 100 MG Cap PO PRN (10:25)
[2020-10-31] MEDS ORDERED: Benzocaine/Menthol 20%-0.5% Spray 56 GM Canister TOP PRN (10:25)
[2020-10-31] MEDS ORDERED: Witch Hazel Medicated Pads 40/Jar TOP PRN (10:25)
[2020-10-31] MEDS ORDERED: Ampicillin 1 GM in Sodium Chloride 0.9% 100 ML IV SCH (12:00)
--- NOTE | 2020-11-01 07:08 | PCM.SN.2 ---
- Free Text/Narrative Note: note: Patient is doing well in the period. Minimal lochia, voiding well, ambulated without problems. Nursing without concerns. Mom's group B strep status was positive and she received only 1 dose of antibiotics. Patient is afebrile, vital signs are stable Abdomen is flat, soft, uterus is below the umbilicus and is firm and nontender. Legs are nontender. Assessment: recovery going well. Plan: Routine care. Patient be discharged home within the next 24-48 hours depending on the baby's discharge time.
--- NOTE | 2020-11-01 09:30 | PCM.DCSUM1 ---
Discharge Summary - Hospital Course Free Text/Narrative:: Stage I: Erin is a 20-year-old 2 para 1-0-0-1 female admitted on the a.m. of 10/31/2020 at 41-3/7 weeks gestational age with an TERESA of 10/21/2020 in active labor with advanced cervical dilation of 8 cm. Upon admission she was started on IV antibiotics with ampicillin 2 g given IV per protocol. Delay was undertaken to allow for antibiotic prophylaxis. Patient did not receive any analgesia. She progressed fairly rapidly to complete cervical dilation by approximately 0930 hrs. Amniotic fluid was clear. heart tones reassuring. Contraction pattern was every 2 to 3 minutes. Stage II: Patient pushed for approximately 15 minutes and delivered a viable, gillette, male infant with Apgars of 8 and 9, a weight of 4360 g (9 pounds 9.8 ounces), length of 23 inches. Gentle downward retraction and upward traction were used to deliver the baby's shoulders. No dystocia or other delivery problems were noted. The baby delivered at 0946 hrs. on 10/31/2020 in a direct occiput anterior position. Patient had no perineal or vaginal lacerations. The baby was placed on mom's abdomen, dried with warm blanket and nose and mouth were bulb suction. Pitocin was increased to 500 cc an hour using routine 10 units/L of IV fluid solution. This to facilitate increase in uterine tone and decrease likelihood of bleeding. The umbilical cord was allowed to pulsate for 2 to 3 minutes, was then clamped x2 and cut by the baby's Father Jose F. The um bilical cord had 3 vessels. Stage III: The placenta delivered at 1 950 hours in a Harper presentation. It appeared intact and complete and was discarded per patient desire. Estimated blood loss was approximately 100 cc. Perineum was intact and no suturing was required. Patient plans to breast-feed. patient is done very well. She is ambulating well, has minimal lochia, is voiding without concerns and is nursing without problems. She is desiring discharge home. Condition: Good. Diagnosis: Stroke: No - Discharge Data Discharge Date: 11/01/20 Discharge Disposition: Home, Self-Care 01 Condition: Good - Referral to Home Health Primary Care Physician: Michael Saenz MD - Discharge Diagnosis/Problem(s) (1) 41 weeks gestation of SNOMED Code(s): 97577194 ICD Code: Z3A.41 - 41 WEEKS GESTATION OF Status: Acute Current Visit: Yes - Patient Instructions Diet: Regular Diet as Tolerated (Nursing diet with increased calories and calcium as recommended) Activity: As Tolerated (No intercourse or tampons until bleeding resolves) Driving: May Drive Today Showering/Bathing: May Shower (May take a bath) Notify Provider of: Fever, Increased Pain, Swelling and Redness, Nausea and/or Vomiting - Discharge Plan Home Medications: Home Meds Pnv No.95/Ferrous Fum/Folic AC [ Tablet] 1 tab PO DAILY 03/20/19 [History] Ferrous Sulfate [Iron] 325 mg PO DAILY 10/31/20 [History] Acetaminophen [Tylenol] 650 mg PO Q4H PRN tablet 11/01/20 [Rx] Ibuprofen [Motrin] 600 mg PO Q4H PRN tablet 11/01/20 [Rx] Referrals: Michael Saenz MD [Primary Care Provider] - (Return to clinic[facility] weeks.) - Discharge Summary/Plan Comment DC Time >30 min.: No Discharge Summary/Plan Comment: Discharge instructions: 1. Discharge home 2. Diet, activity and follow-up discussed with patient. Recommend nursing diet with increased calories and calcium. 3. Precautions given concern increased pain, bleeding, temperature, signs/symptoms of DVT/PE. 4. Medications per home medication was printed, discussed with and given to the patient. 5. Return to clinic-Dr. Saenz[facility] in 2 weeks. Diagnosis: Term -delivered Condition: Good - Patient Data Vitals - Most Recent: Last Vital Signs Temp 36.6 C 11/01/20 05:26 Pulse 66 11/01/20 05:26 Resp 14 11/01/20 05:26 BP 105/89 11/01/20 05:26 Pulse Ox 96 11/01/20 05:26 Weight - Most Recent: 70.67 kg Lab Results - Last 24 hrs: Laboratory Results - last 24 hr 10/31/20 Range/Units 07:50 RPR Non-reactive (NONREACTIVE) Med Orders - Current: Current Medications Acetaminophen (Acetaminophen 325 Mg Tab) 650 mg PO Q4H PRN PRN Reason: mild pain or fever Benzocaine/Menthol (Benzocaine/Menthol 20%-0.5% [place] 56 Gm Canister) 0 gm TOP ASDIRECTED PRN PRN Reason: Perineal Comfort Measure Last Admin: 10/31/20 11:28 Dose: 1 can Documented by: Docusate Sodium (Docusate Sodium 100 Mg Cap) 100 mg PO BID PRN PRN Reason: Constipation Ibuprofen (Ibuprofen 600 Mg Tab) 600 mg PO Q4H PRN PRN Reason: Mild pain or fever Prenat Multivit/Auto Body Estimator/Iron/Folic Ac ( Multivitamin With Calcium/Folic Acid/Iron Tab) 1 each PO DAILY MARYANA Witch Rebecca (Witch Rebecca Medicated Pads 40/Jar) 1 pad TOP ASDIRECTED PRN PRN Reason: Perineal Comfort Measure Last Admin: 10/31/20 11:28 Dose: 1 tub Documented by: Discontinued Medications Ampicillin Sodium 2 gm/ Sodium (Chloride) 100 mls @ 200 mls/hr IV ONETIME ONE Stop: 10/31/20 08:10 Last Admin: 10/31/20 07:47 Dose: 200 mls/hr Documented by: Ampicillin Sodium 1 gm/ Sodium (Chloride) 100 mls @ 200 mls/hr IV Q4H MARYANA Oxytocin/Lactated Ringer's (Pitocin In Lr 10 Units/1,000 Ml) 10 unit in 1,000 mls @ 500 mls/hr IV .CONTINUOUS MARYANA Last Admin: 10/31/20 09:16 Dose: 500 mls/hr Documented by: Lactated Ringer's (Ringers, Lactated) 1,000 mls @ 100 mls/hr IV ASDIRECTED MARYANA Last Admin: 10/31/20 07:47 Dose: 100 mls/hr Documented by: Nalbuphine HCl (Nalbuphine 10 Mg/1 Ml Vial) 10 mg IVPUSH Q2H PRN PRN Reason: Pain Ondansetron HCl (Ondansetron 4 Mg/2 Ml Sdv) 4 mg IVPUSH Q4H PRN PRN Reason: Nausea/Vomiting Sodium Chloride (Sodium Chloride 0.9% 10 Ml Syringe) 10 ml FLUSH ASDIRECTED PRN PRN Reason: Keep Vein Open
[2020-11-01] MEDS: Prenatal Multivitamin with Calcium/Folic Acid/Iron Tab PO SCH (09:32)
[2020-11-02] MEDS: Prenatal Multivitamin with Calcium/Folic Acid/Iron Tab PO SCH (09:03)
--- NOTE | 2020-11-02 09:23 | PCM.SN.2 ---
- Free Text/Narrative Note: Post Progress Note PPD #2 Subjective: Doing well overall. Ambulating without difficulty. Lochia minimal. Voiding without difficulty. Tolerating regular diet without nausea or vomiting. Pain controlled with oral medications. Breast-feeding with minimal difficulty. Objective: Vitals: Vital Signs - 24 hr 11/01/20 11/01/20 11/01/20 09:31 15:32 22:56 Temperature 36.5 C 36.4 C 36.7 C Pulse, 75 75 81 Peripheral Respiratory 16 16 14 Rate Blood Pressure 122/91 H 134/83 118/83 O2 Sat by Pulse 99 99 97 Oximetry 11/02/20 03:51 Temperature 36.7 C Pulse, 68 Peripheral Respiratory 14 Rate Blood Pressure 120/82 O2 Sat by Pulse 97 Oximetry Physical Exam General: Alert and oriented, no acute distress Lungs: Clear to auscultation bilaterally Heart: Regular rate and rhythm Abdomen: Soft, minimal appropriate tenderness, non-distended, fundus midline, nontender, and 2 to 3 fingerbreadths below the umbilicus Extremities: No edema in bilateral lower extremities, no calf tenderness bilaterally ASSESSMENT: 20-year-old female -0-0-2 s/p normal vaginal delivery PPD #2, complicated by GBS positive status with GBS bacteriuria and received only 1 dose of antibiotics prior to delivery PLAN: Doing well Breast-feeding with minimal difficulty. Assist as needed Lochia minimal. Continue to monitor for appropriate lochia. Continue routine care Discharge home today Edilson Bobo MD 9:22 AM 11/02/2020
--- NOTE | 2020-11-02 09:32 | PCM.DCSUM1 ---
Discharge Summary - Hospital Course Free Text/Narrative:: Delivery note: Stage I: Erin is a 20-year-old 2 para 1-0-0-1 female admitted on the a.m. of 10/31/2020 at 41-3/7 weeks gestational age with an TERESA of 10/21/2020 in active labor with advanced cervical dilation of 8 cm. Upon admission she was started on IV antibiotics with ampicillin 2 g given IV per protocol. Delay was undertaken to allow for antibiotic prophylaxis. Patient did not receive any analgesia. She progressed fairly rapidly to complete cervical dilation by approximately 0930 hrs. Amniotic fluid was clear. heart tones reassuring. Contraction pattern was every 2 to 3 minutes. Stage II: Patient pushed for approximately 15 minutes and delivered a viable, gillette, male infant with Apgars of 8 and 9, a weight of 4360 g (9 pounds 9.8 ounces), length of 23 inches. Gentle downward retraction and upward traction were used to deliver the baby's shoulders. No dystocia or other delivery problems were noted. The baby delivered at 0946 hrs. on 10/31/2020 in a direct occiput anterior position. Patient had no perineal or vaginal lacerations. The baby was placed on mom's abdomen, dried with warm blanket and nose and mouth were bulb suction. Pitocin was increased to 500 cc an hour using routine 10 units/L of IV fluid solution. This to facilitate increase in uterine tone and decrease likelihood of bleeding. The umbilical cord was allowed to pulsate for 2 to 3 minutes, was then clamped x2 and cut by the baby's Father Jose F. The umbilical cord had 3 vessels. Stage III: The placenta delivered at 1 950 hours in a Harper presentation. It appeared intact and complete and was discarded per patient desire. Estimated blood loss was approximately 100 cc. Perineum was intact and no suturing was required. Patient plans to breast-feed. Condition: Good. Diagnosis: Stroke: No - Discharge Data Discharge Date: 11/02/20 Discharge Disposition: Home, Self-Care 01 Condition: Good - Referral to Home Health Primary Care Physician: Michael Saenz MD - Discharge Diagnosis/Problem(s) (1) 40 weeks gestation of SNOMED Code(s): 76473608 ICD Code: Z3A.40 - 40 WEEKS GESTATION OF Status: Acute Current Visit: No (2) GBS (group B Streptococcus carrier), +RV culture, currently SNOMED Code(s): 8304553568215, [id number], [id number] ICD Code: O99.820 - STREPTOCOCCUS B CARRIER STATE COMPLICATING Status: Acute Current Visit: No (3) Vaginal delivery SNOMED Code(s): 074926926 ICD Code: O80 - ENCOUNTER FOR FULL-TERM UNCOMPLICATED DELIVERY Status: Acute Current Visit: No - Patient Summary/Data Complications: None Consults: None Hospital Course: Erin Dueñas was admitted for advanced stage of labor. On admission her cervix was dilated to 8 cm. She was GBS positive and was started on ampicillin for GBS prophylaxis. She received 1 dose prior to delivery. She had spontaneous rupture of membranes with clear fluid. She progressed to complete and began pushing. On 10/31/2020 she had a normal vaginal delivery of a live male infant at 09:46. Apgars of 8 and 9. Weight of 4360 g (9 pounds 9.8 ounces). Her course was uneventful. Her pain was well controlled and she had minimal lochia. She was ambulating, tolerating a regular diet and voiding normally. She was breast-feeding with minimal difficulty. She was afebrile and her hematocrit was 37.7 on admission. She desired to be discharged home on the morning of PPD #2. Her blood type is AB+. - Patient Instructions Diet: Regular Diet as Tolerated (Nursing diet with increased calories and calcium as recommended) Activity: As Tolerated (No intercourse or tampons until bleeding resolves) Driving: May Drive Today Showering/Bathing: May Shower (May take a bath) Notify Provider of: Fever, Increased Pain, Swelling and Redness, Nausea and/or Vomiting Other/Special Instructions: Please contact your physician's office if you have heavy vaginal bleeding enough to soak a pad in less than an hour for several hours. Monitor for any signs of an infection in the breasts with severe pain or redness of the breast. - Discharge Plan *PRESCRIPTION DRUG MONITORING PROGRAM REVIEWED*: Not Applicable *COPY OF PRESCRIPTION DRUG MONITORING REPORT IN PATIENT EMILIE: Not Applicable Home Medications: Home Meds Pnv No.95/Ferrous Fum/Folic AC [ Tablet] 1 tab PO DAILY 03/20/19 [History] Ferrous Sulfate [Iron] 325 mg PO DAILY 10/31/20 [History] Acetaminophen [Tylenol] 650 mg PO Q4H PRN tablet 11/01/20 [Rx] Ibuprofen [Motrin] 600 mg PO Q4H PRN tablet 11/01/20 [Rx] Benzocaine/Menthol [Dermoplast Pain Relief [place]] 1 spray TOP ASDIRECTED PRN canister 11/02/20 [Rx] Docusate Sodium [Colace] 100 mg PO BID PRN cap 11/02/20 [Rx] Vit with Ca/FA/Iron [ Plus Iron] 1 each PO DAILY tablet 11/02/20 [Rx] deric Fernandez [Tucks] 1 pad TOP ASDIRECTED PRN pad 11/02/20 [Rx] Patient Handouts: Care After Vaginal Delivery Referrals: Michael Saenz MD [Primary Care Provider] - (Return to clinicDrCharli Saenz2 weeks.) - Discharge Summary/Plan Comment DC Time >30 min.: No - Patient Data Vitals - Most Recent: Last Vital Signs Temp 36.6 C 11/02/20 09:02 Pulse 64 11/02/20 09:02 Resp 16 11/02/20 09:02 BP 115/75 11/02/20 09:02 Pulse Ox 98 11/02/20 09:02 Weight - Most Recent: 70.67 kg I&O - Last 24 hours: Intake & Output 11/01/20 11/02/20 11/02/20 22:59 06:59 14:59 Intake Total 0 Balance 0 Med Orders - Current: Current Medications Acetaminophen (Acetaminophen 325 Mg Tab) 650 mg PO Q4H PRN PRN Reason: mild pain or fever Benzocaine/Menthol (Benzocaine/Menthol 20%-0.5% [place] 56 Gm Canister) 0 gm TOP ASDIRECTED PRN PRN Reason: Perineal Comfort Measure Last Admin: 10/31/20 11:28 Dose: 1 can Documented by: Docusate Sodium (Docusate Sodium 100 Mg Cap) 100 mg PO BID PRN PRN Reason: Constipation Ibuprofen (Ibuprofen 600 Mg Tab) 600 mg PO Q4H PRN PRN Reason: Mild pain or fever Prenat Multivit/Shingle Bolt Cutter/Iron/Folic Ac ( Multivitamin With Calcium/Folic Acid/Iron Tab) 1 each PO DAILY MARYANA Last Admin: 11/02/20 09:03 Dose: 1 each Documented by: Deric Fernandez (Deric Fernandez Medicated Pads 40/Jar) 1 pad TOP ASDIRECTED PRN PRN Reason: Perineal Comfort Measure Last Admin: 10/31/20 11:28 Dose: 1 tub Documented by: Discontinued Medications Ampicillin Sodium 2 gm/ Sodium (Chloride) 100 mls @ 200 mls/hr IV ONETIME ONE Stop: 10/31/20 08:10 Last Admin: 10/31/20 07:47 Dose: 200 mls/hr Documented by: Ampicillin Sodium 1 gm/ Sodium (Chloride) 100 mls @ 200 mls/hr IV Q4H MARYANA Oxytocin/Lactated Ringer's (Pitocin In Lr 10 Units/1,000 Ml) 10 unit in 1,000 mls @ 500 mls/hr IV .CONTINUOUS MARYANA Last Admin: 10/31/20 09:16 Dose: 500 mls/hr Documented by: Lactated Ringer's (Ringers, Lactated) 1,000 mls @ 100 mls/hr IV ASDIRECTED MARYANA Last Admin: 10/31/20 07:47 Dose: 100 mls/hr Documented by: Nalbuphine HCl (Nalbuphine 10 Mg/1 Ml Vial) 10 mg IVPUSH Q2H PRN PRN Reason: Pain Ondansetron HCl (Ondansetron 4 Mg/2 Ml Sdv) 4 mg IVPUSH Q4H PRN PRN Reason: Nausea/Vomiting Sodium Chloride (Sodium Chloride 0.9% 10 Ml Syringe) 10 ml FLUSH ASDIRECTED PRN PRN Reason: Keep Vein Open
== END 2020-11-02 10:15 | disposition home or self-care (01) | DRG 560 ==
LOC: JD.OB 07:20 → JD.OBCHECK 07:20 → JD.OB 07:41 → JD.OBCHECK 07:41 → OBSVTOIN 09:46 → JD.OB 09:47
PROVIDERS: ADMIT Obstetrics & Gynecology; ATTEND Obstetrics & Gynecology
PROC: 10E0XZZ Delivery of Products of Conception, External Approach (ICD-10-PCS; principal; 2020-10-31)
DX: O99.824 Streptococcus B carrier state complicating childbirth (principal); O48.0 Post-term pregnancy; Z3A.41 41 weeks gestation of pregnancy; Z37.0 Single live birth; Z20.822 Contact with and (suspected) exposure to COVID-19
CPT/HCPCS: 36415; 59025; 59409; 85025; 86592; A9270-GY; J0290; J2590; J7120; U0002

== ENCOUNTER 2022-11-18 23:31 | Inpatient (IN) | payer BC ==
[2022-11-19] MEDS ORDERED: Sodium Chloride 0.9% 10 ML Syringe FLUSH PRN (00:10)
[2022-11-19] MEDS ORDERED: Nalbuphine 10 MG/0.5 ML Syringe IVPUSH PRN (00:10)
[2022-11-19] MEDS ORDERED: Lactated Ringers 1,000 ML IV SCH (00:15)
[2022-11-19 00:34] LABS: BASOPHILS ABSOLUTE AUTO 0.04 K/mm3 (0.01-0.08); BASOPHILS PERCENT AUTO 0.3 % (0.1-1.2); EOSINOPHILS ABSOLUTE AUTO 0.07 K/mm3 (0.04-0.36); EOSINOPHILS PERCENT AUTO 0.6 (0.7-5.8); HEMATOCRIT 39.1 % (34.1-44.9); HEMOGLOBIN 13.1 gm/dl (11.2-15.7); IMMATURE GRAN ABSOLUTE AUTO 0.06 K/mm3 (0.00-0.10); IMMATURE GRAN PERCENT AUTO 0.5 % (<=1.0); LYMPHOCYTES PERCENT AUTO 20.5 % (19.3-51.7); MEAN CORPUSCULAR HEMOGLOBIN 30.5 pg (25.6-32.2); MEAN CORPUSCULAR HGB CONC 33.5 g/dl (32.2-35.5); MEAN CORPUSCULAR VOLUME 90.9 fl (79.4-94.8); MEAN PLATELET VOLUME 11.6 fl (9.4-12.3); MONOCYTES ABSOLUTE AUTO 1.14 K/mm3 (0.24-0.36); MONOCYTES PERCENT AUTO 9.7 % (4.7-12.5); NEUTROPHILS PERCENT AUTO 68.4 % (34.0-71.1); PLATELET COUNT,PLT 197 K/mm3 (182-369); WHITE BLOOD CELL COUNT,WBC 11.71 K/mm3 (3.98-10.04)
[2022-11-19] MEDS ORDERED: Oxytocin/Lactated Ringers 10 UNIT/1,000 ML BAG IV SCH (03:45)
[2022-11-19] MEDS ORDERED: Aluminum Hydroxide/Magnesium Hydroxide/Simethicone Susp 30 ML Cup PO PRN (07:29)
[2022-11-19] MEDS ORDERED: Witch Hazel Medicated Pads 40/Jar TOP PRN (07:29)
[2022-11-19] MEDS ORDERED: Benzocaine/Menthol 20%-0.5% Spray 78 GM Cannister TOP PRN (07:29)
[2022-11-19] MEDS ORDERED: Ibuprofen 600 MG Tab PO PRN (07:29)
[2022-11-19] MEDS ORDERED: Acetaminophen 325 MG Tab PO PRN (07:29)
[2022-11-19] MEDS ORDERED: Docusate Sodium 100 MG Cap PO PRN (07:29)
[2022-11-19] MEDS ORDERED: Sodium Chloride 0.9% 10 ML Syringe FLUSH SCH (09:00)
[2022-11-19] MEDS: Prenatal Multivitamin with Calcium/Folic Acid/Iron Tab PO SCH (22:02)
[2022-11-21] MEDS: Prenatal Multivitamin with Calcium/Folic Acid/Iron Tab PO SCH ×2 (08:04→08:05)
== END 2022-11-21 11:30 | disposition home or self-care (01) | DRG 560 ==
LOC: JD.OBCHECK 23:31 → JD.OB 23:37 → JD.OBCHECK 11-19 01:34 → JD.OB 11-19 01:34 → OBSVTOIN 11-19 05:23
PROVIDERS: ADMIT Family Medicine; ATTEND Family Medicine
PROC: 10E0XZZ Delivery of Products of Conception, External Approach (ICD-10-PCS; principal; 2022-11-19)
PROC: 10907ZC Drainage of Amniotic Fluid, Therapeutic from Products of Conception, Via Natural or Artificial Opening (ICD-10-PCS; 2022-11-19)
DX: O48.0 Post-term pregnancy (principal); Z37.0 Single live birth; Z3A.40 40 weeks gestation of pregnancy
CPT/HCPCS: 36415; 59025; 59409; 85025; 86592

== ENCOUNTER 2024-06-07 21:52 | Emergency (ER) | payer SELFPAY ==
[2024-06-07] MEDS: Lidocaine/Epineph/Tetracaine 3 ML Syringe TOP ONE (22:13)
[2024-06-07] MEDS: Lidocaine 1% 10 ML MDV INJECT ONE (22:14)
== END 2024-06-07 23:00 | disposition home or self-care (01) ==
LOC: JD.ED 21:52
DX: S01.81XA Laceration without foreign body of other part of head, initial encounter (principal); W01.198A Fall on same level from slipping, tripping and stumbling with subsequent striking against other object, initial encounter
CPT/HCPCS: 12011; 99282; A9270; J3490